=== PATIENT | female | born 1965 | race Caucasian/White ===

== ENCOUNTER 2019-02-03 07:39 | Inpatient (IN) | payer OTHER ==
[~2019-02-03] VITALS: Ht 152.4 cm; Wt 52.6 kg
[~2019-02-03 07:39] MED LIST: FEMARA2.5 MG PO; IBRANCE125 MG PO
[2019-02-08] MEDS ORDERED: PEPCID20 MG PO (12:01)
[2019-02-08] MEDS ORDERED: OXYC1TAB9 PO (12:01)
[2019-02-08] MEDS ORDERED: INTESTINEX680 M1 PO (12:01)
== END 2019-02-08 16:03 | disposition home or self-care (01) | DRG 330 ==
LOC: EDBD → SURH 02-04 09:23 → O/R 02-04 09:23 → SURH 02-04 11:44
PROVIDERS: ADMIT Surgery
PROC: 07TD4ZZ Resection of Aortic Lymphatic, Percutaneous Endoscopic Approach (ICD-10-PCS; 2019-02-04)
PROC: 0DTG4ZZ Resection of Left Large Intestine, Percutaneous Endoscopic Approach (ICD-10-PCS; principal; 2019-02-04 11:30)
DX: D37.4 Neoplasm of uncertain behavior of colon (principal); K56.690 Other partial intestinal obstruction; R97.0 Elevated carcinoembryonic antigen [CEA]; R59.0 Localized enlarged lymph nodes; D50.0 Iron deficiency anemia secondary to blood loss (chronic); Z08 Encounter for follow-up examination after completed treatment for malignant neoplasm; Z85.3 Personal history of malignant neoplasm of breast